=== PATIENT | female | born 1940 | race Caucasian/White ===

== ENCOUNTER 2022-10-28 07:20 | Day surgery (SDC) | payer OTHER, BC ==
[2022-10-28 08:25] LABS: Hematocrit 49.2 % (36.0-45.0)
[2022-10-28 09:39] VITALS: BP 120/77; TEMP 97.9; O2SAT 90; BMI 21.6
[2022-10-28 10:48] LABS: Hematocrit 49.2 % (36.0-45.0)
== END 2022-10-28 10:41 | disposition home or self-care (01) ==
LOC: DS 07:20
PROVIDERS: ATTEND Family Medicine
DX: D75.1 Secondary polycythemia (principal)
CPT/HCPCS: 36415; 85014; 85018; 99195